=== PATIENT | male | born 1990 | race Caucasian/White ===

== ENCOUNTER 2016-11-23 04:38 | Emergency (ER) | payer BC ==
[~2016-11-23] VITALS: Ht 185.4 cm; Wt 113.5 kg
[~2016-11-23 04:38] MED LIST: CARI250T; DENIES MEDS; HYDR-906
[2016-11-23 04:43] VITALS: Ht 185.4 cm; Wt 113.5 kg
[2016-11-23] MEDS ORDERED: LIDOCAINE 1% (MDV) 20 ML INJ SC ONE (05:30)
--- NOTE | 2016-11-23 05:30 | RADRPT ---
PROCEDURE: RIGHT WRIST - 3 VIEWS CLINICAL INDICATION: 26-year-old male with right hand pain following trauma 4 weeks ago. TECHNIQUE: AP, lateral and oblique views of the right wrist were performed. The images reviewed on a PACS workstation. COMPARISON: None. FINDINGS: There is a mild displaced fracture involving the base of the right first metacarpal bone extending i nto the carpometacarpal joint space. There is no evidence for dislocation. The bone marrow mineral ization is within normal limits. IMPRESSION: Mildly displaced intra-articular fracture base right first metacarpal bone. .Blake Heath MD, Date Time Electronically viewed and signed by .Blake Heath MD, on 11/23/2016 05:30 .M/
[2016-11-23] MEDS ORDERED: IBUP-1542 PO (05:45)
--- NOTE | 2016-11-23 06:01 | ERD ---
ER Documentation Chief Complaint Date/Time DATE: 11/23/16 TIME: 05:51 Chief Complaint hematoma left lower leg r/t fall HPI 26-year-old male complaining of swelling in his left lower leg. Patient states that he was snow sledding 4 weeks ago, when he hit a large rock with his left lower leg. He developed a large hematoma, but the hematoma had not subsided over the 4 weeks. He also injured his right hand at the same time, had his right thumb hyperflexed when hitting the rocks. He has slight pain at the base of his right first metacarpal. Denies any other injuries. Denies numbness and tingling in either upper or lower extremities. Denies leg pain. ROS All systems reviewed and are negative except as per history of present illness. Medications Home Meds Active Scripts Ibuprofen* (Motrin*) 600 Mg Tab, 600 MG PO Q6H Y for PAIN AND OR ELEVATED TEMP, #30 TAB Prov:RESHMA MOYLINDA Russo. [employer] 11/23/16 Reported Medications Carisoprodol* (Soma*) 250 Mg Tablet, PRN 01/05/12 Hydrocodone Bit-Acetaminophen ([place]) 1 Tab Tablet, Q4H PRN 01/05/12 [Denies Meds] No Conflict Check 03/05/11 Allergies Allergies: Coded Allergies: No Known Drug Allergy (Verified Allergy, Unknown, 05/16/12) PMhx/Soc Medical and Surgical Hx: pt denies Medical Hx, pt denies Surgical Hx History of Surgery: No Anesthesia Reaction: No Hx Neurological Disorder: No Hx Respiratory Disorders: No Hx Cardiac Disorders: No Hx Psychiatric Problems: No Hx Miscellaneous Medical Probl: No Hx Alcohol Use: No Hx Substance Use: No Hx Tobacco Use: No Physical Exam Vitals Vital Signs Date Time Temp Pulse Resp B/P Pulse Ox O2 Delivery O2 Flow Rate FiO2 11/23/16 04:43 98.2 64 18 132/77 100 Physical Exam General impression: Well-developed, well-nourished. Alert, oriented, in no acute distress Head: Normocephalic, atraumatic. Respiration: Normal respiratory effort. Lungs clear to auscultate bilaterally. No wheezes, rales or rhonchi. Cardiovascular: Regular rate and rhythm. No murmurs or extra heart sounds. Extremities: A 10 cm raised hematoma noted on the medial left lower leg, fluctuant, nontender. Left lower leg neurovascularly intact distal to the hematoma. Tenderness noted in the base of the right first metacarpal, normal range of motion of the finger of the right hand, neurovascularly intact. Neuro: Mental status normal, speech normal. Skin: Normal turgor. No rash or lesions. Psych: Normal mood and affect. Results 24 hrs Current Medications Medications (Trade) Dose Ordered Sig/Eduar Route PRN Reason Start Time Stop Time Status Last Admin Dose Admin Lidocaine (Xylocaine 1% (Mdv) 20 ml) 20 ml ONCE ONCE SC 11/23/16 05:30 11/23/16 05:31 DC Procedures/MDM Procedure note: Incision and Drainage Verbal consent obtained for incision and drainage of patient's hematoma. The area was prepped with Betadine. Lidocaine 1% was infiltrated for local anesthesia. After appropriate anesthesia, incision was made using #11 blade. Copious amount of blood clot was drained from the hematoma. The wound was then cleaned and dressed. Patient tolerated procedure well. No evidence of compartment syndrome. Patient advised to return to eating 2 days for wound check. X-ray of the right hand showed a mildly displaced fracture at the base of the first metacarpal. The area of injury was immobilized with a thumb spica splint. Patient was noted to be comfortable and neurovascularly intact both before and after the immobilization. Patient also advised to follow-up with his PCP for orthopedic referral. Patient appears well, stable for discharge and outpatient management. Medical decision making shared with patient and family. Education provided to patient and family. Patient and family expressed understanding of the plan. Medications on discharge: Ibuprofen. Follow-up: Primary care provider in 2-3 days or return to ED if worse. Departure Diagnosis: Primary Impression: Traumatic hematoma of left lower leg Encounter type: initial encounter Qualified Code: S80.12XA - Traumatic hematoma of left lower leg, initial encounter Additional Impression: Fracture of metacarpal base of right hand, closed Encounter type: initial encounter Qualified Code: S62.319A - Fracture of metacarpal base of right hand, closed, initial encounter Condition: Good Patient Instructions: Fracture, Hand (Closed), Hematoma Referrals: [facility] Hours: Mon-Fri 9:00 AM - 5:00 PM Additional Instructions: Return to this facility in 2 DAYS for a follow-up wound check exam.Return sooner if your condition worsens. SPECIALIST: YOU HAVE A MEDICAL CONDITION WHICH REQUIRES YOU TO SEE A SPECIALIST WITHIN THE NEXT 1-2 DAYS. PLEASE FOLLOW UP WITH YOUR PRIMARY PHYSICIAN FOR REFFERAL.IF YOU DO NOT HAVE A PRIMARY CARE PHYSICIAN AND/OR YOU CAN NOT AFFORD TO SEE A PHYSICIAN THE FOLLOWING RESOURCES HAVE BEEN SUPPLIED TO YOU. IT IS YOUR RESPONSIBILITY TO BE SEEN BY THE SPECIALIST MING MOY NP Nov 23, 2016 06:01
[2016-11-25] MEDS ORDERED: CEPH-443 PO (04:45)
== END 2016-11-23 05:55 | disposition home or self-care (01) ==
LOC: FTE 04:38
DX: S80.12XA Contusion of left lower leg, initial encounter (principal); S62.318A Displaced fracture of base of other metacarpal bone, initial encounter for closed fracture; W18.09XA Striking against other object with subsequent fall, initial encounter; Y92.9 Unspecified place or not applicable

== ENCOUNTER 2016-11-25 04:23 | Emergency (ER) | END 2016-11-25 05:15 | disposition home or self-care (01) | DX: Z48.01 Encounter for change or removal of surgical wound dressing (principal) ==